=== PATIENT | female | born 1985 | race Caucasian/White ===

== ENCOUNTER 2025-02-21 18:18 | Emergency (ER) | payer OTHER, SELFPAY ==
[2025-02-21 18:22] VITALS: BP 149/103; PULSE 69; RESP 20; TEMP 36.6; O2SAT 100
--- NOTE | 2025-02-21 18:27 | ED_ITS ---
HPI - URI/Sore Throat General Chief Complaint: Upper Respiratory Infection Stated Complaint: hurts to swallow/right side Time Seen by Provider: 02/21/25 18:27 History of Present Illness HPI Narrative: 39-year-old female presented for complaint of a tender swollen lymph node to the right neck. First noticed yesterday. Patient endorses last week similar symptoms on the left side of the neck. Denies significant sore throat, ear pain, dental trauma, nasal congestion or drainage, cough, n/v/d/f/c. Related Data Home Medications ?Medication ?Instructions ?Recorded ?Confirmed ?Last Taken ?Type guselkumab 100 mg/mL subcutaneous mg subcut 02/21/25 Unknown History syringe (Tremfya) semaglutide (weight loss) 2.4 mg subcut 02/21/25 Unkn own History mg/0.75 mL subcutaneous pen injector (Wegovy) Allergies Allergy/AdvReac Type Severity Reaction Status Date / Time No Known Allergies Allergy Verified 02/21/25 18:33 Review of Systems Review of Systems: CONSTITUTIONAL: Denies body aches, fever, chills, or sweats. EYES: Denies visual changes, redness, or discharge. ENT: reports right neck lymph node swelling denies sore throat Denies rhinorrhea, congestion, or otalgia. CARDIOVASCULAR: Denies chest pain, palpitations, or edema. RESPIRATORY: Denies dyspnea. GASTROINTESTINAL: Denies abdominal pain, nausea, vomiting, or diarrhea. SKIN: Denies rash NEUROLOGIC: Denies headache Exam Narrative: GENERAL: well-appearing, no acute distress. EYES: conjunctivae clear ENT: Mucous membranes moist. Normal dentition. TM pearly saldana with normal light reflex bilaterally; no tragal tenderness. Oropharynx not erythematous without lesions. Tonsils not enlarged and without exudate. No drooling, no hoarseness, no trismus, uvula midline. No tripod positioning, hot potato voice, or soft palate swelling. NECK: Supple. Minimal anterior cervical lymphadenopathy CHEST: Clear to auscultation, breath sounds equal. No respiratory distress, speaks in full sentences. HEART: Regular rate and rhythm. SKIN: Warm, dry, no rash. NEURO: Alert and oriented x3. Course Course Emergency Course: Patient is aware of diagnosis, understands and agrees to treatment plan. Anticipatory guidance given. Patient agrees to follow-up as directed and is aware of reasons to seek care at the emergency department. Portions of this record may have been created with voice recognition software Level of Care: Express Care Visit Vital Signs Vital signs: Vital Signs Temperature 97.8 F 02/21/25 18:22 Pulse Rate 69 02/21/25 18:22 Respiratory Rate 20 02/21/25 18:22 Blood Pressure 149/103 H 02/21/25 18:22 Pulse Oximetry 100 02/21/25 18:22 Oxygen Delivery Room Air 02/21/25 18:22 Temperature 97.8 F 02/21/25 18:22 Pulse Rate 69 02/21/25 18:22 Respiratory Rate 20 02/21/25 18:22 Blood Pressure 149/103 H 02/21/25 18:22 Pulse Oximetry 100 02/21/25 18:22 Oxygen Delivery Room Air 02/21/25 18:22 MDM - URI/Sore Throat MDM Narrative Medical decision making narrative: neg strep result reviewed with pt. Advise supportive treatments. Patient is appropriate for outpatient treatment and follow-up. Differential Diagnosis Differential diagnosis: Likely upper respiratory infection, viral infection and pharyngitis Lab Data Labs: Lab Results 02/21/25 Range/Units 18:32 POC Grp A Strep Screen Negative (Negative) Discharge Plan Discharge Clinical Impression: Lymphadenopathy Patient Disposition: Home Condition: Stable Instructions: Lymphadenopathy (ED) Additional Instructions: Rapid strep swab was negative today You will be notified in a few days if the culture comes back positive for strep, and appropriate antibiotics will be called in at that time. if symptoms are due to a viral illness, it is not treated with antibiotics. Viral symptoms can be present for up to 10-14 days. Recommendations: Tylenol every 8 hours as needed for pain/fever Low setting heating pad as needed Soft foods, cool liquids, warm tea. Gargle with warm saltwater twice a day. Chloraseptic spray and throat lozenges. Rest and stay hydrated. --Follow up with your PCP --Go to the ER immediately if you cannot swallow your saliva, trouble b reathing/wheezing, throat swelling, pain is persistent and severe Patient Language: [place] Prescriptions: No Action Tremfya 100 mg/mL syringe SUBCUT Wegovy 2.4 mg/0.75 mL pen injector SUBCUT Follow-up/Referrals: Harms,Kip Arcos M.D. [Primary Care Provider] Time of Disposition: 18:48
[2025-02-21 18:44] LABS: EDSTREPNEGPOS1 Negative (Negative)
--- OUTSIDE RECORDS SUMMARY | 2025-02-21 19:17 | XMS_ITS | Clinical Summary ---
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 This disclosure is being madepursuant to the Care Everywhere program and may not contain all information available regarding this patient. Last updated 18.[facility] Allergies No known active allergies Medications * Be aware that medications may not be up to date on this document. Alwaysverify current medications with the patient. calcipotriene-be tamethasone dip (Taclonex) 0.005-0.064 % ointmentIndicati ons:Plaque psoriasis Apply to affected areas on extremities BID 60 g 3 3 Active betamethasone dipropionate augmented (Diprolene) 0.05 % ointment Apply to affected areas on legs twice daily. 30 days supply. 50 g 3 3 Active guselkumab (Tremfya) 100 MG/ML prefilled syringeIndicatio ns:Other psoriasis Inject 1 ml subcutaneous on day 1, then at 4 weeks 2 mL 4 Active triamcinolone acetonide (Kenalog) 0.1 % creamIndications :Other psoriasis Apply to affected area on extremities and trunk BID. 30 day supply. 454 g 3 4 Active clobetasol (Temovate) 0.05 % creamIndications :Other psoriasis Apply to affected area on trunk and extremities BID. 30 day supply. 60 g 3 4 Active meloxicam (Mobic) 15 MG tablet Take 1 (one) tablet by mouth once daily 30 tablet 4 5 Active Other 1.75 mL by Injection route every 7 days (once a week) Active Active Problems Problem Noted Date Diagnosed Date Plaque psoriasis 04/17/2022 Encounter for long-term curr ent use of high risk medication (Tremfya) 04/17/2022 Encounters Date Type Department Care Team Description 01/05/2025 2:00 PM CDT Office Visit [facility] - Rheumatology [address] [place] [phone] Kim Bailey MD Primary osteoarthritis of both knees (Primary Dx); Other psoriasis; Polyarthralgia 01/05/2025 Travel 12/14/2024 3:35 PM CDT - 12/14/2024 11:59 PM CDT Hospital Encounter [facility] LAB OP DRAW STATION [address] [place] [address] Kim Bailey MD Discharge Disposition: Home or Self Care 12/14/2024 2:56 PM CDT - 12/14/2024 3:34 PM CDT Hospital Encounter [facility] DIAGNOSTIC RAD OP [address] [place] [address] Kim Bailey MD Discharge Disposition: Home or Self Care 12/14/2024 2:00 PM CDT Office Visit [facility] - Rheumatology [address] [place] [phone] Kim Bailey MD Polyarthralgia (Primary Dx); Other psoriasis; Other fatigue; Myalgia 12/14/2024 Travel from Last 3 Months Immunizations Immunization Administration Dates Next Due INFLUENZA VACCINE 03/12/2022 Family History Medical History Relation Name Comments Multiple Sclerosis Sister Relation Name Status Comments Sister Social History Tobacco Use Types Packs/Day Years Used Date Smoking Tobacco: Never Smokeless Tobacco: Never Tobacco Cessation:Counseling Given: Not Answered PHQ-2 Answer Date Recorded Patient Health Questionnaire-2 Score 0 01/05/2025 Comments No Sex and Gender Information Value Date Recorded Sex Assigned at Not on file Legal Sex Female 5:00 PM CDT Gender Identity Not on file Sexual Orientation Not on file Last Filed Vital Signs Vital Sign Reading Time Taken Comments Blood Pressure 147/80 01/05/2025 1:46 PM CDT Pulse 91 01/05/2025 1:46 PM CDT Temperature 36.1 C (96.9 F) 12/14/2024 1:58 PM CDT Respiratory Rate - - Oxygen Saturation 99% 01/05/2025 1:46 PM CDT Inhaled Oxygen Concentration - - Weight 153.3 kg (338 lb) 01/05/2025 1:46 PM CDT Height 167.6 cm (5' 6) 01/05/2025 1:46 PM CDT Body Mass Index 54.55 01/05/2025 1:46 PM CDT Plan of Treatment Upcoming Encounters Date Type Department Care Team (Late st Contact Info) Description 04/13/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 Office Visit [facility] - Dermatology [address] [place] [address], [place] [phone] Starla Vallejo MD [address] [place] [address] [address] [place] [address] Health Maintenance Due Date Last Done Comments HIV SCREENING 2000 HEPATITIS C SCREENING 09/22/2003 DTAP/TDAP/TD VACCINES (1 - Tdap) 2004 HEPATITIS B VACCINE (1 of 3 - 19+ 3-dose series) 2004 PAP SMEAR 2006 HPV VACCINE (1 - 3-dose SCDM series) 2012 COVID-19 VACCINE ( - 2023-2 5 season) 2025 INFLUENZA VACCINE (#1) 2025 03/12/2022 ZOSTER VACCINE (1 of 2) 09/27/2035 DEPRESSION SCREENING Completed 01/05/2025 HIB VACCINE Aged Out No longer eligi ble based on patient's age to complete this topic MENINGOCOCCAL (Group B) VACC INE SHARED DECISION-MAKING Aged Out No longer eligibl e based on patient's age to complete this topic MENINGOCOCCAL GROUPS A/C/Y/W VACCINE Aged Out No longer eligible b ased on patient's age to complete this topic PNEUMOCOCCAL VACCINE Aged Out No long er eligible based on patient's age to complete this topic Procedures Procedure Name Priority Date/Time Associated Diagnosis Comments URINALYSIS REFLEX MICROSCOPIC REFLEX CULTURE Routine 12/14/2024 4:38 PM CDT Other psoriasis Polyarthralgia SS-A (SJOGREN'S) 52+60 ANTIBODIES Routine 12/14/2024 4:14 PM CDT Other psoriasis Polyarthralgia QUANTIFERON-TB GOLD PLUS 4-TUBE Routine 12/14/2024 4:14 PM CDT Other psoriasis Polyarthralgia CYCLIC CITRULLINATED PEPTIDE(CCP) AB IGG Routine 12/14/2024 4:14 PM CDT Other psoriasis Polyarthralgia HLA TYPING B27 Routine 12/14/2024 4:14 PM CDT Other psoriasis Polyarthralgia TSH Routine 12/14/2024 4:14 PM CDT Other psoriasis Polyarthralgia T4 FREE Routine 12/14/2024 4:14 PM CDT Other psoriasis Polyarthralgia SS-B (SJOGREN'S) ANTIBODY Routine 12/14/2024 4:14 PM CDT Other psoriasis Polyarthralgia RHEUMATOID FACTOR BLOOD QUANTITATIVE Routine 12/14/2024 4:14 PM CDT Other psoriasis Polyarthralgia CK BLOOD Routine 12/14/2024 4:14 PM CDT Other psoriasis Polyarthralgia PERNELL BLOOD SCREEN W/REFLEX TITER Routine 12/14/2024 4:14 PM CDT Other psoriasis Polyarthralgia ERYTHROCYTE SEDIMENTATION RATE Routine 12/14/2024 4:14 PM CDT Other psoriasis Polyarthralgia C-REACTIVE PROTEIN Routine 12/14/2024 4: 14 PM CDT Other psoriasis Polyarthralgia COMPREHENSIVE METABOLIC PANEL Routine 12/14/2024 4:14 PM CDT Other psoriasis Polyarthralgia CBC W AUTO DIFFERENTIAL Routine 12/14/2024 4:14 PM CDT Other psoriasis Polyarthralgia XR PELVIS W BILAT HIP 2VW Routine 12/14/2024 3:29 PM CDT Other psoriasis Polyarthralgia Other fatigue Myalgia XR KNEE RIGHT 2VW OR LESS Routine 12/14/2024 3:29 PM CDT Other psoriasis Polyarthralgia Other fatigue Myalgia XR KNEE LEFT 2VW OR LESS Routine 12/14/2024 3:29 PM CDT Other psoriasis Polyarthralgia Other fatigue Myalgia XR SI JOINTS 3VW OR MORE Routine 12/14/2024 3:29 PM CDT Other psoriasis Polyarthralgia Other fatigue Myalgia from Last 3 Months Results * URINALYSIS REFLEX MICROSCOPIC REFLEX CULTURE (12/14/2024 4:38 PM CDT) Color UA Yellow Yellow, Straw 12/14/2024 5:16 PM CDT [facility] Clarity UA Clear Clear 12/14/2024 5:16 PM CDT [facility] Glucose UA Normal Normal 12/14/2024 5:16 PM CDT [facility] Bilirubin UA Negative Negative 12/14/2024 5:16 PM CDT [facility] Ketone UA Negative Negative 12/14/2024 5:16 PM CDT [facility] Specific [place] UA 1.026 1.005 - 1.030 12/14/2024 5:16 PM CDT [facility] Blood UA Negative Negative 12/14/2024 5:16 PM CDT [facility] pH UA 5.0 5.0 - 8.0 12/14/2024 5:16 PM CDT [facility] Protein UA Negative Negative 12/14/2024 5:16 PM CDT [facility] Urobilinogen UA Normal Normal mg/dL 12/14/2024 5:16 PM CDT [facility] Nitrite UA Negative Negative 12/14/2024 5:16 PM CDT [facility] Leukocyte Esterase UA Negative Negative 12/14/2024 5:16 PM CDT [facility] Reflex Status Culture not indicated 12/14/2024 5:16 PM CDT [facility] Urine Microscopy Urine microscopy not indicated 12/14/2024 5:16 PM CDT [facility] Urine URINE SPECIMEN OBTAINED BY CLEAN CATCH PROCEDURE / Unknown Collection / Unknown 12/14/2024 4:38 PM CDT 12/14/2024 5:02 PM CDT Kim Bailey MD LAB - URINALYSIS ORDER MIKE Final Result [facility] [address] [place] [phone], [facility] [phone] * SS-A (SJOGREN'S) 52+60 ANTIBODIES (12/14/2024 4:14 PM CDT) SS-A 52 Antibody 1 0 - 40 AU/mL 12/18/2024 11:36 AM CDT [email or web address] ([facility]) Comment: INTERPRETIVE INFORMATION: SSA-52 (Ro52) (KAR[place]INA) Antibody, IgG 29 AU/mL or Less ............. Negative 30 - 40 AU/mL ................ Equivocal 41 AU/mL or Greater .......... Positive SSA-52 (Ro52) and/or SSA-60 (Ro60) antibodies are associated with a diagnosis of Sjogren syndrome, systemic lupus erythematosus (SLE), and systemic sclerosis. SSA-52 antibody overlaps significantly with the major SSc-related antibodies. SSA-52 (Ro52) antibody occurs frequently in patients with inflammatory myopathies, often in the presence of interstitial lung disease. SS-A 60 Antibody 0 0 - 40 AU/mL 12/18/2024 11:36 AM CDT [email or web address] ([facility]) Comment: REFERENCE INTERVAL: SSA-60 (Ro60) (KAROLINA) Antibody, IgG 29 AU/mL or Less ............. Negative 30 - 40 AU/mL ................ Equivocal 41 AU/mL or Greater .......... Positive Performed By: [facility] [address] [place] [address] Paper Deliverer: Germán Cobb MD, PhD CLIA Number: [id number] Blood BLOOD SPECIMEN / Unknown Lab Venipuncture / Unknown 12/14/2024 4:14 PM CDT 12/14/2024 5:00 PM CDT Kim Bailey MD LAB - CHEMISTRY ORDERA BLES Final Result [facility]) [address] [place] [address] * QUANTIFERON-TB GOLD PLUS 4-TUBE (12/14/2024 4:14 PM CDT) QuantiFERON Mitogen Minus NIL 9.94 IU/mL 12/17/2024 7:56 AM CDT [facility]) QuantiFERON Nil Value 0.06 IU/mL 12/17/2024 7:56 AM CDT [facility]) QuantiFERON Plus TB1 Minus NIL 0.01 <=0.34 IU/mL 12/17/2024 7:56 AM CDT [facility]) QuantiFERON Plus TB2 Minus NIL 0.02 <=0.34 IU/mL 12/17/2024 7:56 AM CDT [facility]) QuantiFERON-TB Gold Plus Negative Negative 12/17/2024 7:56 AM CDT [facility]) Comment: INTERPRETIVE INFORMATION:Quantiferon TB Gold Plus Interferon gamma release is measured for specimens from each of the four collection tubes. A qualitative result (Negative, Positive, or Indeterminate) is based on interpretation of the four values: NIL, MITOGEN minus NIL (MITOGEN-NIL), TB1 minus NIL (TB1-NIL), and TB2 minus NIL (TB2-NIL). The NIL value represents nonspecific reactivity produced by the patient specimen. The MITOGEN-NIL value serves as the positive control for the patient specimen, demonstrating successful lymphocyte activity. The TB1-NIL tube specifically detects CD4+ lymphocyte reactivity, specifically stimulated by the TB1 antigens. The TB2-NIL tube detects both CD4+ and CD8+ lymphocyte reactivity, stimulated by TB2 antigens. An overall Negative result does not completely rule out TB infection. A false-positive result in the absence of other clinical evidence of TB infection is not uncommon. Refer to: Updated Guidelines for Using Interferon Gamma Release Assays to Detect Mycobacterium tuberculosis Infection -- [place], 2010 (http://www.cdc.gov/mmwr/preview/mmwrhtml/xq6095e4.htm), for more information concerning test performance in low-prevalence populations and use in occupational screening. Performed By: [facility] [address] [place] [address] Paper Deliverer: Germán Cobb MD, PhD CLIA Number: [id number] Blood BLOOD SPECIMEN / Unknown Lab Venipuncture / Unknown 12/14/2024 4:14 PM CDT 12/14/2024 4:44 PM CDT Kim Bailey MD LAB - CHEMISTRY ORDERA BLES Final Result Performing Organization Address City/[facility] Co de Phone Number [facility] ([facility]) [address] [place] [address], [facility] * RHEUMATOID FACTOR BLOOD QUANTITATIVE (12/14/2024 4:14 PM CDT) Pathologist [facility] Rheumatoid Factor <15 <30 IU/mL 12/14/2024 6:08 PM CDT [facility] Rheumatoid Factor Screen Negative Negative 12/14/2024 6:08 PM CDT [facility] Blood BLOOD SPECIMEN / Unknown Lab Venipuncture / Unknown 12/14/2024 4:14 PM CDT 12/14/2024 5:28 PM CDT us Kim Bailey MD LAB - CHEMISTRY ORDERA BLES Final Result Performing Organization Address City/State/[facility] Co de Phone Number [facility] [address] [place] [address], [facility] [phone] * (ABNORMAL) C-REACTIVE PROTEIN (12/14/2024 4:14 PM CDT) Pathologist [facility] C-Reactive Protein 1.8(H) <=0.5 mg/dL 12/14/2024 5:12 PM CDT [facility] Blood BLOOD SPECIMEN / Unknown Lab Venipuncture / Unknown 12/14/2024 4:14 PM CDT 12/14/2024 4:37 PM CDT Kim Bailey MD LAB - CHEMISTRY ORDERA BLES Final Result Performing Organization Address [facility] Co de Phone Number [address] [address], [facility] [phone] * PERNELL BLOOD SCREEN W/REFLEX TITER (12/14/2024 4:14 PM CDT) Pathologist [facility] PERNELL IgG None Detected None Detected 12/17/2024 10:17 AM CDT [email or web address] ([facility]) Comment: No Anti-Nuclear Antibodies (PERNELL) detected by RIZWAN. No further testing will be performed. If suspicion of connective tissue disease is strong and PERNELL RIZWAN is negative, consider testing for PERNELL by IFA ([id number]). INTERPRETIVE INFORMATION: Anti-Nuclear Antibodies (PERNELL), IgG by RIZWAN Antinuclear Antibodies (PERNELL), IgG by RIZWAN: PERNELL specimens are screened using enzyme-linked immunosorbent assay (RIZWAN) methodology. All RIZWAN results reported as Detected are further tested by indirect fluorescent assay (IFA) using HEp-2 substrate with an IgG-specific conjugate. The PERNELL RIZWAN screen is designed to detect antibodies against dsDNA, histones, SS-A (Ro), SS-B (La), Stapleton, Stapleton/SENIOR STERE[employer] COMPILER TEAM LEAD, Scl-70, Zahra-1, centromeric proteins, other antigens extracted from the HEp-2 cell nucleus. PERNELL RIZWAN assays have been reported to have lower sensitivities than PERNELL IFA for systemic autoimmune rheumatic diseases (SARD). Negative results do not necessarily rule out SARD. Performed By: [facility] [address] [place] [id number] Paper Deliverer: Germán Cobb MD, PhD CLIA Number: [id number] Blood BLOOD SPECIMEN / Unknown Lab Venipuncture / Unknown 12/14/2024 4:14 PM CDT 12/14/2024 5:00 PM CDT Kim Bailey MD LAB - CHEMISTRY ORDERA BLES Final Result Performing Organization Address [facility] Co de Phone Number [facility]) [address] [place] [address] * HLA TYPING B27 (12/14/2024 4:14 PM CDT) HLA-B27 Negative Negative 12/17/2024 4:22 PM CDT [facility] ([facility]) Comment: INTERPRETIVE INFORMATION: HLA-B27 HLA-B27 is a serologically defined allele of the human HLA-B locus. The presence of the HLA-B27 antigen is strongly associated with ankylosing spondylitis and related disorders. This test was developed and its performance characteristics determined by [facility]. It has not been cleared or approved by the US Food and Drug Administration. This test was performed in a CLIA certified laboratory and is intended for clinical purposes. Performed By: [place] [address] Paper Deliverer: Germán Cobb MD, PhD CLIA Number: [id number] Blood BLOOD SPECIMEN / Unknown Lab Venipuncture / Unknown 12/14/2024 4:14 PM CDT 12/14/2024 4:37 PM CDT Kim Bailey MD LAB - CHEMISTRY ORDERA BLES Final Result Performing Organization Address [facility] Co de Phone Number [facility]) [address] [place] [address] * SS-B (SJOGREN'S) ANTIBODY (12/14/2024 4:14 PM CDT) SS-B Antibody 0 0 - 40 AU/mL 12/18/2024 11:36 AM CDT [facility] ([facility]) Comment: INTERPRETIVE INFORMATION: SSB (La) ([place]) Ab, IgG 29 AU/mL or Less ............. Negative 30 - 40 AU/mL ................ Equivocal 41 AU/mL or Greater .......... Positive SSB (La) antibody is seen in 50-60% of Sjogren syndrome cases and is specific if it is the only KAROLINA antibody present. 15-25% of patients with systemic lupus erythematosus (SLE) and 5-10% of patients with progressive systemic sclerosis (PSS) also have this antibody. Performed By: [facility] [address] [place] [address] Paper Deliverer: Germán Cobb MD, PhD CLIA Number: [id number] Blood BLOOD SPECIMEN / Unknown Lab Venipuncture / Unknown 12/14/2024 4:14 PM CDT 12/14/2024 5:00 PM CDT Kim Bailey MD LAB - CHEMISTRY ORDERA BLES Final Result Performing Organization Address City/[facility]/ZIP Co de Phone Number [facility] ([facility]) [address] [place] [address] * CYCLIC CITRULLINATED PEPTIDE(CCP) AB IGG (12/14/2024 4:14 PM CDT) [facility] CCP Antibody IgG 1.8 <5.0 U/mL 12/14/2024 6:08 PM CDT [facility] Blood BLOOD SPECIMEN / Unknown Lab Venipuncture / Unknown 12/14/2024 4:14 PM CDT 12/14/2024 5:28 PM CDT Kim Bailey MD LAB - CHEMISTRY ORDERA BLES Final Result [address] [address], [place] [phone] * (ABNORMAL) ERYTHROCYTE SEDIMENTATION RATE (12/14/2024 4:14 PM CDT) [facility] Erythrocyte Sedimentation Rate Westergren 64(H) 0 - 20 MM/HR 12/14/2024 4:59 PM T [facility] Blood BLOOD SPECIMEN / Unknown Lab Venipuncture / Unknown 12/14/2024 4:14 PM CDT 12/14/2024 4:37 PM CDT us Kim Bailey MD LAB - HEMATOLOGY ORDER MIKE Final Result [facility] [address] [place] [address], [facility] [phone] * (ABNORMAL) CBC W/ DIFFERENTIAL (12/14/2024 4:14 PM CDT) WBC 9.9 4.0 - 10.7 x10E9/L 12/14/2024 4:50 PM [facility] RBC Count 4.86 3.90 - 5.20 x10E12/L 12/14/2024 4:50 PM [facility] Hemoglobin 13.3 11.9 - 15.8 g/dL 12/14/2024 4:50 PM [facility] Hematocrit 42.0 34.8 - 46.1 % 12/14/2024 4:50 PM [facility] MCV 86.4 80.0 - 98.0 fL 12/14/2024 4:50 PM [facility] MCH 27.4 26.7 - 33.6 pg 12/14/2024 4:50 PM [facility] MCHC 31.7 31.7 - 36.3 g/dL 12/14/2024 4:50 PM [facility] RDW-CV 13.9 11.3 - 14.8 % 12/14/2024 4:50 PM [facility] Platelet Count 270 150 - 420 x10E9/L 12/14/2024 4:50 PM [facility] MPV 11.3 7.8 - 11.4 fL 12/14/2024 4:50 PM [facility] Neutrophil % 57.1 41.0 - 74.0 % 12/14/2024 4:50 PM [facility] Lymphocyte % 30.8 17.0 - 47.0 % 12/14/2024 4:50 PM [facility] Monocyte % 5.1 3.0 - 11.0 % 12/14/2024 4:50 PM [facility] Eosinophil % 6.2 0.0 - 7.0 % 12/14/2024 4:50 PM [facility] Basophil % 0.5 0.0 - 1.6 % 12/14/2024 4:50 PM [facility] Immature Granulocytes % 0.3 0.0 - 1.0 % 12/14/2024 4:50 PM [facility] Neutrophil Absolute 5.64 1.60 - 7.50 x10E9/L 12/14/2024 4:50 PM [facility] Lymphocyte Absolute 3.04 1.00 - 4.40 x10E9/L 12/14/2024 4:50 PM [facility] Monocyte Absolute 0.50 0.15 - 1.00 x10E9/L 12/14/2024 4:50 PM [facility] Eosinophil Absolute 0.61(H) 0.00 - 0.60 x10E9/L 12/14/2024 4:50 PM [facility] Basophil Absolute 0.05 0.00 - 0.13 x10E9/L 12/14/2024 4:50 PM [facility] Blood BLOOD SPECIMEN / Unknown Lab Venipuncture / Unknown 12/14/2024 4:14 PM CDT 12/14/2024 4:37 PM CDT us Kim Bailey MD LAB - HEMATOLOGY ORDER MIKE Final Result [address] [address], [facility] [phone] * COMPREHENSIVE METABOLIC PANEL (12/14/2024 4:14 PM CDT) BUN 16 7 - 26 mg/dL 12/14/2024 9:06 PM [facility] Creatinine 0.78 0.56 - 0.96 mg/dL 12/14/2024 9:06 PM [facility] Sodium 137 136 - 145 mmol/L 12/14/2024 9:06 PM [facility] Potassium 4.0 3.5 - 4.5 mmol/L 12/14/2024 9:06 PM [facility] Chloride 107 98 - 107 mmol/L 12/14/2024 9:06 PM [facility] CO2 23 22 - 29 mmol/L 12/14/2024 9:06 PM [facility] Glucose 79 70 - 99 mg/dL 12/14/2024 9:06 PM [facility] Calcium 9.4 8.4 - 10.2 mg/dL 12/14/2024 9:06 PM [facility] Protein Total 7.5 6.0 - 8.3 g/dL 12/14/2024 9:06 PM [facility] Albumin 4.3 3.4 - 5.0 g/dL 12/14/2024 9:06 PM [facility] Bilirubin Total 0.4 0.2 - 1.2 mg/dL 12/14/2024 9:06 PM [facility] Alkaline Phosphatase 67 40 - 150 U/L 12/14/2024 9:06 PM [facility] ALT 12 5 - 55 U/L 12/14/2024 9:06 PM [facility] AST 15 5 - 34 U/L 12/14/2024 9:06 PM [facility] Anion Gap 7 6 - 16 12/14/2024 9:06 PM [facility] BUN/Creatinine Ratio 21 7 - 23 12/14/2024 9:06 PM [facility] Osmolality Calculated 284 275 - 295 mOsm/kg 12/14/2024 9:06 PM [facility] Albumin/Globulin Ratio 1.3 1.1 - 2.3 12/14/2024 9:06 PM [facility] eGFR by CKD-EPI >90 >=90 mL/min/1.7 3 m2 12/14/2024 9:06 PM [facility] Comment:Estimated Glomerular Filtration Rate (eGFR) calculated using the CKD-EPI Creatinine Equation (2020), per the National Kidney Foundation and [place] [employer]ph[employer] recommendations. Blood BLOOD SPECIMEN / Unknown Lab Venipuncture / Unknown 12/14/2024 4:14 PM CDT 12/14/2024 4:37 PM CDT us Kim Bailey MD LAB - CHEMISTRY ORDERA BLES Final Result [address] [address], [place] [phone] * CK BLOOD (12/14/2024 4:14 PM CDT) CK Total 92 30 - 200 U/L 12/14/2024 5:12 PM CDT [facility] Blood BLOOD SPECIMEN / Unknown Lab Venipuncture / Unknown 12/14/2024 4:14 PM CDT 12/14/2024 4:37 PM CDT us Kim Bailey MD LAB - CHEMISTRY ORDERA BLES Final Result Performing Organization Address [facility]/ZIP Co de Phone Number [address] [address], [place] [phone] * TSH (12/14/2024 4:14 PM CDT) TSH 2.160 0.350 - 4.940 uIU/mL 12/14/2024 5:33 PM CDT [facility] Blood BLOOD SPECIMEN / Unknown Lab Venipuncture / Unknown 12/14/2024 4:14 PM CDT 12/14/2024 4:37 PM CDT us Kim Bailey MD LAB - CHEMISTRY ORDERA BLES Final Result Performing Organization Address City/[facility]/ZIP Co de Phone Number [address] [address], [place] [phone] * T4 FREE (12/14/2024 4:14 PM CDT) T4 Free 1.0 0.7 - 1.5 ng/dL 12/14/2024 5:33 PM CDT [facility] Blood BLOOD SPECIMEN / Unknown Lab Venipuncture / Unknown 12/14/2024 4:14 PM CDT 12/14/2024 4:37 PM CDT Kim Bailey MD LAB - CHEMISTRY ORDERA BLES Final Result [facility] [address] [place] [address], [facility] [phone] * XR Knee Right 2Vw or Less (12/14/2024 3:29 PM CDT) Anatomical Region Laterality Modality Lower Extremity Digital Radiogra phy 12/14/2024 3:35 PM CDT Impressions 12/14/2024 3:41 PM CDT IMPRESSION: 1.Right and left hips: Normal. 2.Sacroiliac joints: Normal. 3.Right and left knees: Small osteophytes indicating early degenerative change without joint space narrowing. Small effusion on the left. > Interpreting Provider: Rigoberto Piña MD on 12/14/2024 3:41 PM Narrative 12/14/2024 3:41 PM CDT PROCEDURE: XR KNEE RIGHT 2VW OR LESS, XR PELVIS W BILAT HIP 2VW, XR KNEE LEFT 2VW OR LESS, XR SI JOINTS 3VW OR MORE DATE/TIME OF EXAM: 12/14/2024 3:30 PM CLINICAL INFORMATION: None relevant/not provided if blank. Indication: L40.8: Other psoriasis M25.50: Polyarthralgia R53.83: Other fatigue M79.10: Myalgia Additional History: COMPARISON: None. FINDINGS: Pelvis and bilateral hips: There is no fracture or dislocation of either hip. The joint spaces are normal. There are no erosions. The pelvic radiograph is normal. An intrauterine contraceptive device is visible. Sacroiliac joints: There is no erosion, widening, sclerosis, narrowing, or ankylosis of either sacroiliac joint. There is no fracture. The hip joint spaces are normal. Right knee: No acute fracture or dislocation is present. The joint spaces are normal. There are small osteophytes. No erosions are seen. There is no effusion. Left knee: No acute fracture or dislocation is present. The joint spaces are normal. There are small osteophytes. No erosions are seen. There is a small effusion. Procedure Note Rigoberto Piña MD - 12/14/2024 PROCEDURE: XR KNEE RIGHT 2VW OR LESS, XR PELVIS W BILAT HIP 2VW, XRKNEE LEFT 2VW OR LESS, XR SI JOINTS 3VW OR MORE DATE/TIME OF EXAM: 12/14/2024 3:30 PM CLINICAL INFORMATION: None relevant/not provided if blank. Indication: L40.8: Other psoriasis M25.50: Polyarthralgia R53.83: Other fatigue M79.10: Myalgia Additional History: COMPARISON: None. FINDINGS: Pelvis and bilateral hips: There is no fracture or dislocation of either hip. The joint spaces are normal. There are no erosions. The pelvic radiograph is normal. An intrauterine contraceptive device is visible. Sacroiliac joints: There is no erosion, widening, sclerosis, narrowing, or ankylosis ofeither sacroiliac joint. There is no fracture. The hip joint spaces are normal. Right knee: No acute fracture or dislocation is present. The joint spaces arenormal. There are small osteophytes. No erosions are seen. There is no effusion. Left knee: No acute fracture or dislocation is present. The joint spaces arenormal. There are small osteophytes. No erosions are seen. There is a small effusion. IMPRESSION: 1.Right and left hips: Normal. 2.Sacroiliac joints: Normal. 3.Right and left knees: Small osteophytes indicating early degenerative change without joint space narrowing. Small effusion on the left. > Interpreting Provider: Rigoberto Piña MD on 12/14/2024 3:41 PM Kim Bailey MD DIAGNOSTIC IMAGING ORD ERABLES Final Result * XR Knee Left 2Vw or Less (12/14/2024 3:29 PM CDT) Anatomical Region Laterality Modality Lower Extremity Digital Radiogra phy 12/14/2024 3:35 PM CDT Impressions 12/14/2024 3:41 PM CDT IMPRESSION: 1.Right and left hips: Normal. 2.Sacroiliac joints: Normal. 3.Right and left knees: Small osteophytes indicating early degenerative change without joint space narrowing. Small effusion on the left. > Interpreting Provider: Rigoberto Piña MD on 12/14/2024 3:41 PM Narrative 12/14/2024 3:41 PM CDT PROCEDURE: XR KNEE RIGHT 2VW OR LESS, XR PELVIS W BILAT HIP 2VW, XR KNEE LEFT 2VW OR LESS, XR SI JOINTS 3VW OR MORE DATE/TIME OF EXAM: 12/14/2024 3:30 PM CLINICAL INFORMATION: None relevant/not provided if blank. Indication: L40.8: Other psoriasis M25.50: Polyarthralgia R53.83: Other fatigue M79.10: Myalgia Additional History: COMPARISON: None. FINDINGS: Pelvis and bilateral hips: There is no fracture or dislocation of either hip. The joint spaces are normal. There are no erosions. The pelvic radiograph is normal. An intrauterine contraceptive device is visible. Sacroiliac joints: There is no erosion, widening, sclerosis, narrowing, or ankylosis of either sacroiliac joint. There is no fracture. The hip joint spaces are normal. Right knee: No acute fracture or dislocation is present. The joint spaces are normal. There are small osteophytes. No erosions are seen. There is no effusion. Left knee: No acute fracture or dislocation is present. The joint spaces are normal. There are small osteophytes. No erosions are seen. There is a small effusion. Procedure Note Rigoberto Piña MD - 12/14/2024 PROCEDURE: XR KNEE RIGHT 2VW OR LESS, XR PELVIS W BILAT HIP 2VW, XRKNEE LEFT 2VW OR LESS, XR SI JOINTS 3VW OR MORE DATE/TIME OF EXAM: 12/14/2024 3:30 PM CLINICAL INFORMATION: None relevant/not provided if blank. Indication: L40.8: Other psoriasis M25.50: Polyarthralgia R53.83: Other fatigue M79.10: Myalgia Additional History: COMPARISON: None. FINDINGS: Pelvis and bilateral hips: There is no fracture or dislocation of either hip. The joint spaces are normal. There are no erosions. The pelvic radiograph is normal. An intrauterine contraceptive device is visible. Sacroiliac joints: There is no erosion, widening, sclerosis, narrowing, or ankylosis ofeither sacroiliac joint. There is no fracture. The hip joint spaces are normal. Right knee: No acute fracture or dislocation is present. The joint spaces arenormal. There are small osteophytes. No erosions are seen. There is no effusion. Left knee: No acute fracture or dislocation is present. The joint spaces arenormal. There are small osteophytes. No erosions are seen. There is a small effusion. IMPRESSION: 1.Right and left hips: Normal. 2.Sacroiliac joints: Normal. 3.Right and left knees: Small osteophytes indicating early degenerative change without joint space narrowing. Small effusion on the left. > Interpreting Provider: Rigoberto Piña MD on 12/14/2024 3:41 PM Kim Bailey MD DIAGNOSTIC IMAGING ORD ERABLES Final Result * XR Pelvis W Bilat Hip 2Vw (12/14/2024 3:29 PM CDT) Anatomical Region Laterality Modality Pelvis, Lower Extremity Digital Radiography 12/14/2024 3:35 PM CDT Impressions 12/14/2024 3:41 PM CDT IMPRESSION: 1.Right and left hips: Normal. 2.Sacroiliac joints: Normal. 3.Right and left knees: Small osteophytes indicating early degenerative change without joint space narrowing. Small effusion on the left. > Interpreting Provider: Rigoberto Piña MD on 12/14/2024 3:41 PM Narrative 12/14/2024 3:41 PM CDT PROCEDURE: XR KNEE RIGHT 2VW OR LESS, XR PELVIS W BILAT HIP 2VW, XR KNEE LEFT 2VW OR LESS, XR SI JOINTS 3VW OR MORE DATE/TIME OF EXAM: 12/14/2024 3:30 PM CLINICAL INFORMATION: None relevant/not provided if blank. Indication: L40.8: Other psoriasis M25.50: Polyarthralgia R53.83: Other fatigue M79.10: Myalgia Additional History: COMPARISON: None. FINDINGS: Pelvis and bilateral hips: There is no fracture or dislocation of either hip. The joint spaces are normal. There are no erosions. The pelvic radiograph is normal. An intrauterine contraceptive device is visible. Sacroiliac joints: There is no erosion, widening, sclerosis, narrowing, or ankylosis of either sacroiliac joint. There is no fracture. The hip joint spaces are normal. Right knee: No acute fracture or dislocation is present. The joint spaces are normal. There are small osteophytes. No erosions are seen. There is no effusion. Left knee: No acute fracture or dislocation is present. The joint spaces are normal. There are small osteophytes. No erosions are seen. There is a small effusion. Procedure Note Rigoberto Piña MD - 12/14/2024 PROCEDURE: XR KNEE RIGHT 2VW OR LESS, XR PELVIS W BILAT HIP 2VW, XRKNEE LEFT 2VW OR LESS, XR SI JOINTS 3VW OR MORE DATE/TIME OF EXAM: 12/14/2024 3:30 PM CLINICAL INFORMATION: None relevant/not provided if blank. Indication: L40.8: Other psoriasis M25.50: Polyarthralgia R53.83: Other fatigue M79.10: Myalgia Additional History: COMPARISON: None. FINDINGS: Pelvis and bilateral hips: There is no fracture or dislocation of either hip. The joint spaces are normal. There are no erosions. The pelvic radiograph is normal. An intrauterine contraceptive device is visible. Sacroiliac joints: There is no erosion, widening, sclerosis, narrowing, or ankylosis ofeither sacroiliac joint. There is no fracture. The hip joint spaces are normal. Right knee: No acute fracture or dislocation is present. The joint spaces arenormal. There are small osteophytes. No erosions are seen. There is no effusion. Left knee: No acute fracture or dislocation is present. The joint spaces arenormal. There are small osteophytes. No erosions are seen. There is a small effusion. IMPRESSION: 1.Right and left hips: Normal. 2.Sacroiliac joints: Normal. 3.Right and left knees: Small osteophytes indicating early degenerative change without joint space narrowing. Small effusion on the left. > Interpreting Provider: Rigoberto Piña MD on 12/14/2024 3:41 PM Kim Bailey MD DIAGNOSTIC IMAGING ORD ERABLES Final Result * XR SI Joints 3Vw or More (12/14/2024 3:29 PM CDT) Anatomical Region Laterality Modality Pelvis, Lower Extremity Digital Radiography 12/14/2024 3:35 PM CDT Impressions 12/14/2024 3:41 PM CDT IMPRESSION: 1.Right and left hips: Normal. 2.Sacroiliac joints: Normal. 3.Right and left knees: Small osteophytes indicating early degenerative change without joint space narrowing. Small effusion on the left. > Interpreting Provider: Rigoberto Piña MD on 12/14/2024 3:41 PM Narrative 12/14/2024 3:41 PM CDT PROCEDURE: XR KNEE RIGHT 2VW OR LESS, XR PELVIS W BILAT HIP 2VW, XR KNEE LEFT 2VW OR LESS, XR SI JOINTS 3VW OR MORE DATE/TIME OF EXAM: 12/14/2024 3:30 PM CLINICAL INFORMATION: None relevant/not provided if blank. Indication: L40.8: Other psoriasis M25.50: Polyarthralgia R53.83: Other fatigue M79.10: Myalgia Additional History: COMPARISON: None. FINDINGS: Pelvis and bilateral hips: There is no fracture or dislocation of either hip. The joint spaces are normal. There are no erosions. The pelvic radiograph is normal. An intrauterine contraceptive device is visible. Sacroiliac joints: There is no erosion, widening, sclerosis, narrowing, or ankylosis of either sacroiliac joint. There is no fracture. The hip joint spaces are normal. Right knee: No acute fracture or dislocation is present. The joint spaces are normal. There are small osteophytes. No erosions are seen. There is no effusion. Left knee: No acute fracture or dislocation is present. The joint spaces are normal. There are small osteophytes. No erosions are seen. There is a small effusion. Procedure Note Rigoberto Piña MD - 12/14/2024 PROCEDURE: XR KNEE RIGHT 2VW OR LESS, XR PELVIS W BILAT HIP 2VW, XRKNEE LEFT 2VW OR LESS, XR SI JOINTS 3VW OR MORE DATE/TIME OF EXAM: 12/14/2024 3:30 PM CLINICAL INFORMATION: None relevant/not provided if blank. Indication: L40.8: Other psoriasis M25.50: Polyarthralgia R53.83: Other fatigue M79.10: Myalgia Additional History: COMPARISON: None. FINDINGS: Pelvis and bilateral hips: There is no fracture or dislocation of either hip. The joint spaces are normal. There are no erosions. The pelvic radiograph is normal. An intrauterine contraceptive device is visible. Sacroiliac joints: There is no erosion, widening, sclerosis, narrowing, or ankylosis ofeither sacroiliac joint. There is no fracture. The hip joint spaces are normal. Right knee: No acute fracture or dislocation is present. The joint spaces arenormal. There are small osteophytes. No erosions are seen. There is no effusion. Left knee: No acute fracture or dislocation is present. The joint spaces arenormal. There are small osteophytes. No erosions are seen. There is a small effusion. IMPRESSION: 1.Right and left hips: Normal. 2.Sacroiliac joints: Normal. 3.Right and left knees: Small osteophytes indicating early degenerative change without joint space narrowing. Small effusion on the left. > Interpreting Provider: Rigoberto Piña MD on 12/14/2024 3:41 PM Kim Bailey MD DIAGNOSTIC IMAGING ORD ERABLES Final Result from Last 3 Months Insurance [facility] Address: [facility] [id number] [place] [address] Care Teams Air Conditioning Mechanic Industrial Relationship Specialty Start Date End Date Kip Voss MD [address] [place] [address] PCP - General Internal Medicine 11/06/22
--- OUTSIDE RECORDS SUMMARY | 2025-02-21 19:17 | XMS_ITS | Encounter Summary ---
Author Organization [facility] Address [address] [place] [address] Care Team Providers Care Infectious Disease Technician Name Role Phone Kip Voss MD Primary Care Provider [phone] Encounter Details Date Type Department Care Team (Late st Contact Info) Description 07/18/2022 Telephone [facility] [address] [place] [phone] Kip Burch MD [facility] [phone] Social History Tobacco Use Types Packs/Day Years Used Date Smoking Tobacco: Never Smokeless Tobacco: Never Comments Unknown Sex and Gender Information Value Date Recorded Sex Assigned at Not on file Legal Sex Female 5:00 PM CDT Gender Identity Not on file Sexual Orientation Not on file documented as of this encounter Miscellaneous Notes * Telephone Encounter - Dann Shultz - 07/18/2022 1:15 PM CST Current Provider name:Marcin Reason for call: Patient is not able to make her appt today due to her testing positive for covid. Patient would like to know if she can be rescheduled to the next soonest available with another provider. Patient Call Back number: [phone] RCYCLE SERVICE TECHNICIAN documented in this encounter Plan of Treatment Upcoming Encounters Date Type Department Care Team (Late st Contact Info) Description 04/13/2025 11:10 AM MOTORCYCLE SERVICE TECHNICIAN Office Visit [facility] Dermatology [address] [place] [address], [place] [address] Starla Vallejo MD [address] [place] [address] [address] [place] [address] documented as of this encounter Visit Diagnoses Not on filedocumented in this encounter Care Teams Infectious Disease Technician Relationship Specialty Start Date End Date Kip Voss MD [address] [place] [address] PCP - General Internal Medicine 11/06/22 documented as of this encounter
--- OUTSIDE RECORDS SUMMARY | 2025-02-21 19:17 | XMS_ITS | Encounter Summary ---
Author Organization [facility] Address [address] [place] [address] Phone Care Team Providers Care Plaster Mold Maker Name Role Phone Kip Voss MD Primary Care Provider [phone] Encounter Details Date Type Department Care Team (Late st Contact Info) Description 12/22/2024 Results Follow-Up [facility] Medicine Obstetrics and Gynecology [address] [facility] 1st Floor [address] [place] [address] Traci Little Rai, NP [address] [facility] [address] [place], [place] [id number] Pap and High Risk HPV and Genotyping (Cytology Component) Social History Tobacco Use Types Packs/Day Years Used Date Smoking Tobacco: Never Smokeless Tobacco: Never Alcohol Use Standard Drinks/Week Comments No 0 (1 standard drink = 0.6 oz pur e alcohol) [facility] Utilities Answer Date Recorded In the past 12 months has [employer], gas, oil, or water company threatened to shut off services in your home? No 07/27/2024 Humiliation, Afraid, Rape, and Kick questionnair e Answer Date Recorded Within the last year, have y ou been afraid of your partner or ex-partner? No 07/27/2024 Within the last year, have y ou been humiliated or emotionally abused in other ways by your partner or ex-partner? No Within the last year, have y ou been kicked, hit, slapped, or otherwise physically hurt by your partner or ex-partner? No 07/27/2024 Within the last year, have y ou been raped or forced to have any kind of sexual activity by your partner or ex-partner? No 07/27/2024 Social Connection and Isolation Panel Answer Date Recorded In a typical week, how many times do you talk on the phone with family, friends, or neighbors? More than three times a week 07/27/2024 How often do you get togethe r with friends or relatives? Once a week 07/27/2024 How often do you attend chur or muslim services? Never 07/27/2024 Do you belong to any clubs o r organizations such as confucianism groups, unions, fraternal or athletic groups, or school groups? No 07/27/2024 How often do you attend meet ings of the clubs or organizations you belong to? Never 07/27/2024 Are you , , di vorced, , never , or living with a partner? 07/27/2024 AUDIT-C Answer Date Recorded Q1: How often do you have a drink containing alcohol? Never 12/16/2024 Q2: How many drinks containi ng alcohol do you have on a typical day when you are drinking? Patient does not drink Q3: How often do you have si x or more drinks on one occasion? Never 12/16/2024 Overall Financial Resource Strain (CARDIA) Answe r Date Recorded How hard is it for you to pa y for the very basics like food, housing, medical care, and heating? Not hard at all 07/27/2024 PHQ-2 Answer Date Recorded PHQ-2 Total Score (If total score is 3 or more points, staff should administer the PHQ-9) 0 07/27/2024 [facility] of Occupat ional Health - Occupational Stress Questionnaire Answer Date Recorded Do you feel stress - tense, restless, nervous, or anxious, or unable to sleep at night because your mind is troubled all the time - these days? Only a little 07/27/2024 Exercise Vital Sign Answer Date Recorde d On average, how many days pe r week do you engage in moderate to strenuous exercise (like a brisk walk)? 0 days 07/27/2024 On average, how many minutes do you engage in exercise at this level? 0 min 07/27/2024 Hunger Vital Sign Answer Date Recorded Within the past 12 months, y ou worried that your food would run out before you got the money to buy more. Never true 07/27/19 25 Within the past 12 months, t he food you bought just didn't last and you didn't have money to get more. Never true 07/27/2024 PRAPARE - Transportation Answer Date Re corded In the past 12 months, has l ack of transportation kept you from medical appointments or from getting medications? No 07/10 In the past 12 months, has l ack of transportation kept you from meetings, work, or from getting things needed for daily living? No 07/27/2024 [place] Depression Scale Answer Date Recorded [place] Depression Scale Total 3 09/05/2020 The thought of harming myself has occurred to me . Never 09/05/2020 PHQ-9 Answer Date Recorded PHQ-9 Total Score 0 07/27/2024 Housing Stability Vital Sign Answer Jens e Recorded In the last 12 months, was t here a time when you were not able to pay the mortgage or rent on time? No 07/27/2024 In the past 12 months, how m any times have you moved where you were living? 0 07/27/2024 At any time in the past 12 m [facility], were you homeless or living in a jail (including now)? 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
--- OUTSIDE RECORDS SUMMARY | 2025-02-21 19:17 | XMS_ITS | Encounter Summary ---
Author Organization [facility] Address [facility] [place] [address] Care Team Providers Care Plasterer Tender Name Role Phone Kip Voss MD Primary Care Provider [phone] Reason for Visit * Reason Onset Date Comments Medication Prior Auth Request 04/13/2024 Encounter Details Date Type Department Care Team (Late st Contact Info) Description 04/13/2024 Telephone [facility] [address] [place] [address], [facility] [place] [address] Starla Vallejo MD [address] [place] [address] [address] [place] [address] Medication Prior Auth Request Social History Tobacco Use Types Packs/Day Years Used Date Smoking Tobacco: Never Smokeless Tobacco: Never Comments Unknown Sex and Gender Information Value Date Recorded Sex Assigned at Not on file Legal Sex Female 5:00 PM CDT Gender Identity Not on file Sexual Orientation Not on file documented as of this encounter Progress Notes * Enriqueta Gutierres - 04/14/2024 5:31 PM CST Called and lft vm for patient regarding approval of reload of Tremfya 100mg/ml syringes and script sent to [facility]. I gave the pharmacy's phone number and my direct line as well. I also faxed the pharmacy the approval notice and emphasized it was approved for loading dose as well (2 syringes per 28 days). Enriqueta Gutierres- Pharmacy Escrow Secretary (Dermatology) ICIAN INVESTIGATOR * Enriqueta Gutierres - 04/14/2024 5:24 PM CST Medication Prior Authorization: Medication: Tremfya 100mg/ml syringe Status: Approved 04/14/24 through 04/14/25 Submitted via: [email or web address] Insurance: [facility] (p: [phone]) (f: [phone]) Case/Reference number: ID: [id number] RX Card Billing Info: BIN: [id number] PCN: [id number] GROUP: [id number] ID: [id number] PA approval notice uploaded to media tab. Routed approval details to [facility]. Enriqueta Gutierres- Pharmacy Escrow Secretary (Dermatology) ICIAN INVESTIGATOR documented in this encounter Miscellaneous Notes * Telephone Encounter - Enriqueta Gutierres - 04/14/2024 5:06 PM CST PA submitted forcontinuation of therapy Tremfya 100mg/ml syringe [facility] Razo: [id number] Case ID: not yet assigned Provider:[id number] Enriqueta Gutierres (Chaudhry) Government Operations Consultant - Pharmacy Escrow Secretary ICIAN INVESTIGATOR * Telephone Encounter - Enriqueta Gutierres - 04/14/2024 5:00 PM CST PA submitted forcontinuation of therapy Tremfya 100mg/ml syringe [facility]. Razo: [id number] Provider:[id number] Enriqueta Gutierres (Chaudhry) [facility] - Pharmacy Escrow Secretary ICIAN INVESTIGATOR * Telephone Encounter - Rayne Salazar - 04/13/2024 10:38 AM CST Pt calling because [facility] needs prior auth for tremagnieszkaya ICIAN INVESTIGATOR documented in this encounter Plan of Treatment Upcoming Encounters Date Type Department Care Team (Late st Contact Info) Description 04/13/2025 11:10 AM MORTICIAN INVESTIGATOR Office Visit [facility] [address] [place] [address], [place] [address] Starla Vallejo MD [address] [place] [address] [address] [place] [id number] documented as of this encounter Visit Diagnoses Not on filedocumented in this encounter Care Teams Plasterer Tender Relationship Specialty Start Date End Date Kip [place] [address] PCP - General Internal Medicine 11/06/22 documented as of this encounter
--- OUTSIDE RECORDS SUMMARY | 2025-02-21 19:17 | XMS_ITS | Clinical Summary ---
Author Organization [facility] Healthcare Address [address] [place] [address] Care Team Providers Care Supervisor Felting Name Role Phone Kip Voss MD Primary Care Provider [phone] Allergies No known active allergies Medications acetaminophen 500 mg capsuleIndicatio ns:Fever,Pain Take 2 capsules (1,000 mg total) by mouth every 6 (six) hours as needed for pain 90 tablet 1 1 Active calcipotriene (DOVONOX) 0.005 % ointment Apply topically 2 (two) times a day 3 Active calcipotriene-be tamethasone (TACLONEX) ointment Apply to affected areas on extremities BID 3 Active Tremfya 100 mg/mL syringe subcutaneous syringe Inject 1 mL (100 mg total) under the skin every 8 (eight) weeks 2 Active meloxicam (MOBIC) 15 mg tablet Take 1 tablet (15 mg total) by mouth daily 5 Active Hospital, Clinic, or Other Facility Administered Medication Ordered Dose Route Frequency Start Date End Date Status levonorgestreL (LILETTA) 20.1 mcg/24 hrs (6 yrs) 52 mg IUD 1 eachIndications:Pre gnancy Contraception 1 each intrauterine Continuous (implanted device) 10/10/2020 7 Active Active Problems Problem Noted Date Diagnosed Date Annual physical exam 04/12/2021 Assessment & Plan (07/27/2024 3:13 PM ABATTOIR SUPERVISOR): In regard to health maintenance, WWE- not been to one will get appointment scheduled BERNABE Influenza vaccine- declined Eat a healthy diet: focus on lean meats and proteins, more fruits, vegetables and whole grains and low in sugars and fats. Limit red meat and avoid processed meat. Maintain a healthy weight; avoid being overweight. Aim for a normal body mass index (BMI) of 18.5-24.9. Help learning to eat healthier, we can set up appointment with director of rehabilitative services/pelt dropper. Have an active lifestyle, strive for 30 minutes of moderate exercise 5 times a week and strength or resistance training at least twice a week. Use broad-spectrum (UVA+UVB) sunscreen with SPF 30 or greater, is water resistant, limit time spent in the sun (10 am-4pm), wear hat, wear UV protective clothing, wear sunglasses. Never use a tanning bed. Skin that was irradiated may be more sensitive over your lifetime. Limit alcohol intake, 1 drink per day for a woman and 2 drinks per day for a man. Assessment & Plan (07/22/2023 2:41 PM ABATTOIR SUPERVISOR): Preventive exam. Reviewed recommended screening and vaccinations. Following with VALVE INSPECTOR. -Mammogram age 40 -Colonoscopy age 45 Assessment & Plan (04/12/2021 9:12 AM CDT): Preventive exam; reviewed recommended preventive screenings and vaccinations. Encourage annual flu vaccine. Wear sunscreen/protective clothing when outdoors. Need for immunization against influenza 04/12/20 21 Assessment & Plan (04/12/2021 9:13 AM CDT): Vaccine given in office today. Reviewed possible side effects/injection site reactions. Class 3 severe obesity due t o excess calories with serious comorbidity and body mass index (BMI) of 60.0 to 69.9 in adult 04/12/2021 Assessment & Plan (07/27/2024 3:13 PM ABATTOIR SUPERVISOR): Encouraged heart healthy diet and lifestyle. Advised 150 min/week of aerobic exercise. Assessment & Plan (07/22/2023 2:48 PM ABATTOIR SUPERVISOR): Patient interested in medications to assist weight loss. She is motivated for weight loss at this time, has lost 15 lb since the beginning of the year. Briefly reviewed medications used for weight loss including stimulants and GLP 1 medications. Patient does not have a history of pancreatitis or medullary thyroid cancer. No GI procedures or history of IBS. Recommended patient check with her insurance to see what if any medications are covered for weight loss. Patient has a history of gestational hypertension, blood pressures normalize following of her son. Does not require use of medication. No abnormal findings on previous EKG. Today we reviewed need to monitor caloric intake in order to determine areas of improvement, reviewed TDEE. Discussed the importance of following a high protein and lower carbohydrate diet. Calories around 2400, Protein 150 g/day, carb <130 g/day. Discussed the importance of daily activity such as walking in addition to f ormal exercise 1-2 days per week. Assessment & Plan (04/12/2021 9:13 AM CDT): Discussed healthy diet and importance of regular physical activity. Encounter for screening for lipid disorder 04/12 Assessment & Plan (07/22/2023 2:43 PM ABATTOIR SUPERVISOR): Will check fasting labs. Patient aware of need for weight loss and healthy diet. Assessment & Plan (04/12/2021 9:08 AM CDT): Reviewed previous lipid panel and elevated LDL. Will check fasting labs today. History of gestational hypertension 04/12/2021 Assessment & Plan (04/12/2021 9:08 AM CDT): BP well controlled today. Patient encouraged to check BP at home. Will call office for elevated readings. Reviewed need for weight loss and discussed diet and exercise recommendations to improve BP. Cardiac risk counseling 09/12/2020 Gestational hypertension, third trimester 2020 Psoriasis 08/07/2015 Overview (02/22/2020): Psoriasis clobetasol Assessment & Plan (07/27/2024 3:12 PM ABATTOIR SUPERVISOR): Stable and well controlled. Will continue to on Tremfya and seeing dermatology. Assessment & Plan (04/12/2021 8:50 AM CDT): Stable with topical clobetasol Diminished ovarian reserve Resolved Problems Problem Noted Date Diagnosed Date Resolved Date Diabetes mellitus 07/27/2024 07/27/2024 History of obesity 09/12/2020 care following vaginal delivery 08/28/2020 09/12/2020 Overview (08/30/2020): # ID: Afebrile. No signs/symptoms of infection. #COVID-19: Negative # Heme: EBL 250 mL. No signs/symtpoms of acute blood loss anemia. # Rh status: Mom A positive # CV/Pulm: Gestational hypertension - Blood pressures overall normotensive to mild range on nifed XL 30mg daily. blood pressures have ranged 123-138/70-86 over the last 24 hours with last blood pressure 135/70. Asymptomatic, denies KEBEDE/RUQ pain/vision changes. CBC/CMP WNL, UPC 0.08. Patient enrolled in remote blood pressure monitoring. # GI/: Tolerating PO. Voiding spontaneously. # Pain: Well controlled with pain medications. # Post DVT prophylaxis: The patient has the following MAJOR risk factors BMI >/= 40 and the following MINOR risk factors none. enoxaparin 40 mg BID ordered for VTE prophylaxis along with SCDs and early ambulation. # MOC: declines-IVF # MOF: and formula feeding # Mood:stable, bonding with baby # Disposition: Desires discharge home today. Stable for discharge. To schedule follow up appointment with: * [facility] - [facility] - [id number] [facility]. [place], [place] [address]Cyiu to schedule an appointment in 2 weeks and 6 weeks. Follow up to be scheduled with primary OB. Prior to discharge she was consented and enrolled in [facility] remote blood pressure monitoring. She verified enrollment with receipt of text message and reply of yes. She was provided with home blood pressure monitoring kit for continued home monitoring of her blood pressures and instructed on its use. Her AVS summary has been updated with the discharge instructions on the use of the remote blood pressure monitoring system. Symptoms of preeclampsia have been reviewed. Encounter for induction of labor 08/27/2020 10/11/2020 Overview (08/28/2020): 1. Induction of labor for gestational HTN: AROM @1355, clear fluid. Continue OT per protocol. S/p miso x2. 2. Gestational HTN: Asymptomatic. CBC/CMP wnl, UPC 0.08 3. FWB: Continuous monitoring. tracing category I 4. ID: HIV negative. GBS positive, will start penicillin. Membrane Status: AROM @1355, clear fluid. 5. Indications for UDS: none. Verbal consent obtained for UDS: Not indicated 6. MOF: Plans to breastfeed. 7. MOC: Undecided on contraception. 8. Pain management: Epidural placed. 9. Post DVT prophylaxis: The patient has the following MAJOR risk factors BMI >/= 40 and the following MINOR risk factors none. enoxaparin 40 mg BID will be ordered for VTE prophylaxis . 10. COVID Test Status: Preadmission testing negative Obesity affecting , antepartum 04/03/2020 09/12/2020 Encounter for supervision of resulting from assisted reproductive technology 04/03/2020 09/12/2020 Supervision of high-risk pre gnancy, unspecified trimester 04/03/2020 09/12/2020 Overview (04/03/2020): [] Co-management vs. [] Full [facility] Care; [] Red Team [] Blue Team Referring Provider: Susy Kendall [phone] [] or Medicare Insurance [x] Dating Criteria: Embryo transfer 12/29/19 LEILANI 09/15/20 [x] Labs: Rh [A+], Ab [negative], Rubella [immune], HIV [non-reactive], HepBSAg [non-reactive], RPR [non-reactive], GC/CT [negative/negative] [x] Genetic Screenin03/24/20 NIPT: Inconclusive for sex and sex chromosome aneuploidy; 10/10/17 Carrier Screen: Positive for CF [x] CBC/Hgb 13.4/41.7/plt 243 [x] Early 1hr GTT (if indicated) 03/14/20: GTT 129 [x] UCx: 02/22/20: 10,000-49,000 CFU/mL GBS [x] Pap: NILM; HPV negative [] LD ASA (if indicated) starting at 12 weeks: [] EPDS [ ]; PNBHS referral (if indicated) 2nd Tri Labs: [] Anatomy ultrasound: [] CBC/1hr gtt at 24-28wks: [x] Flu Shot (Feb-May): given 02/22/20 [] Tdap (27-36wks): [] Rhogam at 28 wks (if Rh neg): 3rd Tri Labs: [] CBC/HIV/RPR/T&S: [x] GBS:positive UCx 02/22/20 [] GC/CT (if indicated): [] COVID testing: Counselling [] MOD: [] Place of delivery: [] MOC: [] Method of feeding: [] Stockroom Supervisor: [] PP Depression Discussed: Group B Streptococcus urinar y tract infection affecting , antepartum 04/03/2020 09/13/19 Supervision of other normal , antepartum 01/27/2020 09/12/2020 Overview (08/24/2020): IVF - echo normal. Send delivery summary. MO - early one hour 129 , ASA, 83% at 28 weeks; 36 wk growth Patient CF positive, negative Previa resolved 06/23 gHTN dx @ 36.3, pre-e labs sent 08/21 nml -IOL sched 08/27/2020 @ 2200, pt aware, covid test ordered [x] Labs: Labs: Lab Results Component Value Date ABORH A Positive 02/22/2020 IDCOOMB Negative 02/22/2020 [id number] Nonreactive 02/22/2020 LABRPR Nonreactive 02/22/2020 RUBELIGG Reactive 02/22/2020 HEPBSAG Nonreactive 02/22/2020 [x] Genetic Screening:CFDNA, low probability tri 13, 18 and 21, sex inconclusive ( fraction 4.1%) Per SD, discussed options pt did not desire to repeat NIPT or do amniocentesis. Anatomy normal [x] Baby ASA: d/t [place] [x] 1hr GCT at 24-28wks: elevated 1hr, nml 3hr [x] Tdap (27-36wks):06/23/2020 AH [x] Flu Shot: 02/22/2020 AH [] Rhogam (if Rh neg): n/a, A+ [x] GBS at 36 wks:GBS pyuria [x] [x] control method: undecided, list provided [x] 39 weeks discussion of IOL vs. Expectant management: 37wks for gHTN [x] Mode of delivery: anticipate Boy, circ+, [facility] peds Teaching: [x] 1st visit [x] 28-30 week [x] 36 week Body mass index 40+ - severely obese 08/07/2015 04/12/2021 Overview (09/13/2016): BMI 40+ severely obese BMI 50.0-59.9, adult 020 Encounters Date Type Department Care Team Description 12/22/2024 Results Follow-Up [facility] Medicine Obstetrics and Gynecology [address] 1st Floor [address] [place] [address] Traci Little Rai, NP Pap and High Risk HPV and Genotyping (Cytology Component) 12/16/2024 2:11 PM CDT - 12/16/2024 11:59 PM CDT Hospital Encounter [facility] PATHOLOG[facility] [address]rd [place] [address] Encounter for well woman exam with routine gynecological exam Discharge Disposition: Discharge to home or self care 12/16/2024 2:00 PM CDT Office Visit [facility] Medicine Obstetrics and Gynecology [address] 7[address] [place] [address] Traci Little Rai, NP Encounter for well woman exam with routine gynecological exam (Primary Dx) from Last 3 Months Immunizations Immunization Administration Dates Next Due Influenza, Quadrivalent, Lesvia l Culture-based MDCK, Antibiotic Free, Intramuscular 02/22/2020 Influenza, Quadrivalent, Spl it, Preservative Free, Intramuscular 04/12/2021 Influenza, Unspecified 07/27/2024(Deferr ed: Patient Refused),07/27/2024(Deferred: Patient Refused),02/08/2024(Deferred: Patient Refused),02/08/2024(Deferred: Patient Refused),07/22/2023(Deferred: Patient Refused),03/09/2023(Deferred: Patient Refused),03/12/2022,03/15/2019(Deferre d: Patient Refused),03/09/2018 MMR 08/30/2020(Deferred: No longer n eeded) Tdap 06/23/2020 Surgical History Surgery Date Site/Laterality Comments WISDOM TOOTH EXTRACTION OVUM / OOCYTE RETRIEVAL Medical History Medical History Date Comments Cellulitis 12/2015 05-17,- Psoriasis 11/21-present Motion sickness Diminished ovarian reserve BMI 40.0-44.9, adult ([facility]) Supervision of high-risk , unspecified trimester 04/03/2020 Family History Medical History Relation Name Comments Kidney cancer Father Cancer, kidney ; Cause of : Cancer, kidney Colon cancer Maternal Grandfather Cancer, colon; Heart failure Maternal Grandmother No Known Problems Mother Breast cancer Other 1 Breast Cancer - (Added by TW Conv) Cancer Other 2 Reported Family History Of Cancer - (Added by TW Conv) Diabetes Other 3 Diabetes Mellit us - (Added by TW Conv) Heart disease Other 4 Heart Disease - (Added by TW Conv) Diabetes Paternal Grandfather Diabete s mellitus; Breast cancer Paternal Grandmother Cancer , breast; Multiple sclerosis Sister 1 Relation Name Status Comments Father (Age 45) Maternal Grandfather Maternal Grandmother Mother Alive Other 1 Other 2 Other 3 Other 4 Paternal Grandfather Paternal Grandmother Sister 1 Alive Sister 2 Alive Social History Tobacco Use Types Packs/Day Years Used Date Smoking Tobacco: Never Smokeless Tobacco: Never Tobacco Cessation:Counseling Given: Not Answered Alcohol Use Standard Drinks/Week Comments No 0 (1 standard drink = 0.6 oz pur e alcohol) [facility] Ininalities Answer Date Recorded In the past 12 months has e [employer], gas, oil, or water [employer] threatened to shut off services in your [...] How often do you attend chur or caodaism services? Never 07/27/2024 Do you belong to any clubs o r organizations such as congregational groups, unions, fraternal or athletic groups, or [...] staff should administer the PHQ-9) 0 07/27/2024 [facility] Occupational Stress Questionnaire Answer [...] things needed for daily living? No 07/27/2024 Scribner Depression Scale Answer Date Recorded Scribner Depression Scale Total 3 09/05/2020 The thought [...] any time in the past 12 m [facility], were you homeless or living in a care home (including now)? 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 Not on file Not on file Obstetrics History Para Term AB IAB SAB Ectopic Multiple Livin g Live Births 1 1 1 0 0 0 0 0 0 1 1 Date Outcome GA Total Labor Labor/2nd/3rd Weight Sex Type Anes PTL Kate A1 A5 Name Clin 2020 Term 37w 3d 1h 53m 1h 46m/0h 07m 3.3 kg (7 lb 4.4 oz) M Vag-S pont Epidur al N Katein g 8 9 CHLOE ROMERO, Carla Granger MD Complications:None Delivery Location:[facility] Main [facility] amp[facility] ([facility]) Comments 2020- DW- Franck, elevated bp's monitoring after delivery Last Filed Vital Signs Vital Sign Reading Time Taken Comments Blood Pressure 130/79 12/16/2024 2:05 PM CDT Pulse 104 07/27/2024 3:00 PM ABATTOIR SUPERVISOR Temperature 36.7 C (98 F) 07/22/2023 1:43 PM ABATTOIR SUPERVISOR Respiratory Rate 16 07/27/2024 3:00 PM ABATTOIR SUPERVISOR Oxygen Saturation 98% 07/27/2024 3:00 PM ABATTOIR SUPERVISOR Inhaled Oxygen Concentration - - Weight 156 kg (344 lb) 12/16/2024 2:05 PM CDT Height 168.9 cm (5' 6.5) 07/27/2024 3:00 PM ABATTOIR SUPERVISOR Body Mass Index 54.7 07/27/2024 3:00 PM ABATTOIR SUPERVISOR Plan of Treatment Health Maintenance Due Date Last Done Comments Varicella Vaccines (1 of 2 - 13+ 2-dose series) 1998 Hepatitis B Screening 09/27/2003 HPV Vaccines (1 - 3-dose SCDM series) 2012 Covid-19 Vaccine ( season) 2025 05/17/2021, 10/06/2020, 09/08/2020 Influenza Vaccine (#1) 2025 , 04/12/2021, 02/22/2020, Additional history exists Depression Screening 07/27/2025 07/27/2024, 07/27/2024, 07/22/2023, Additional history exists Cervical Cancer Screening 12/16/20252024, 12/16/2024, 02/22/2020 Regular Well Visit/Exam 18-64 12/16/2025 12/16/2024, 07/27/2024, 07/22/2023, Additional history exists DTaP/Tdap/Td Vaccine (2 - Td or Tdap) 06/23/2030 06/23/2020 Hepatitis C Screening Completed 05/21/2019, 019 Pneumococcal vaccine <65 Aged Out No longer eligible based on patient's age to complete this topic Procedures Procedure Name Priority Date/Time Associated Diagnosis Comments PAP AND HIGH RISK HPV, REFLEX TO GENOTYPING Routine 12/16/2024 2:11 PM CDT Encounter for well woman exam with routine gynecological exam HIGH RISK HPV DNA DETECTION WITH GENOTYPING Routine 12/16/2024 2:11 PM CDT Encounter for well woman exam with routine gynecological exam HEPATITIS C ANTIBODY Routine 05/21/2019 8:20 AM ABATTOIR SUPERVISOR Screening for STD (sexually transmitted disease) from Last 3 Months or Most Recently Relevant to Health Maintenance Results * High Risk HPV DNA Detection with Genotyping (Molecular component) (12/16/2024 2:11 PM CDT) Pathologist [facility] HPV HR 16 Not Detected Not Detected [facility] HPV HR 18 Not Detected Not Detected DONTE BAKER HPV HR Non 16/18 Not Detected Not Detected DONTE BAKER Comment: Interpretive Data Nucleic acid amplification for detection of high-risk Human Papilloma virus (HPV) is performed by the Alisia Stephanie 6800 HPV test. This assay specifically detects HPV-16 and HPV-18 genotypes. The following HPV genotypes are detected as high-risk HPV: HPV-31, 33, 35, ,39, 45, 51, 52, 56, 58, 59, 66, and 68. This assay has been approved by the [place] Food and Drug Administration for detection of HPV in cervical specimens collected by a physician using an endocervical brush/spatula or cervical broom and placed in the ThinPrep Pap Test PreservCyt collection containers. The performance characteristics of this test have been verified by the [facility] Molecular Infectious Disease laboratory. Correlate with separately reported cytology results, as applicable. Interpretive data last revised 22 Endocervical 12/16/2024 2:11 PM CDT 12/17/2024 9:15 AM CDT Narrative DONTE BAKER - 12/18/2024 9:08 AM CDT Clinical history and diagnosis->screening Testing type->Screening Last menstrual period (date if known)->unknown Contraceptive use->Hormonal Contraceptive use->IUD us Traci Little NP LAB BODY FLUIDS AND STOO LS ORDERABLES Final Result DONTE [facility] Department [place] [address] [facility] * Pap and High Risk HPV and Genotyping (Cytology Component) (12/16/2024 2:11 PM CDT) Thin prep (Pap test) 12/16/2024 2:11 PM CDT 12/16/2024 4:23 PM CDT Narrative PATHOLOGY [facility] - 12/22/2024 3:30 PM CDT EPIC results best viewed via link to PDF [facility] [place] [address] Note to Patients: This report may contain a detailed description of human tissue sent by a health care provider to the laboratory for pathologic evaluation. The content of this report is essential for diagnosis and may provide important critical findings. This information may be unfamiliar to patients to review without a medical professional present. It is advised that the patient review this report in the presence of a health care provider who can answer questions and explain the details. CYTOPATHOLOGY REPORT FINAL Patient Name: NGOC SWANN Gender: F : 1985 (Age: 39) Address: [address] [place] [id number] [facility] #: [id number] Service: Gynecology Location: Patient Type: [facility] SPECIMEN Taken: 12/16/2024 Received: 12/16/2024 Accessioned: 12/16/2024 Reported: 12/22/2024 Physician(s): Traci Little NP FINAL INTERPRETATION SOURCE OF SPECIMEN Liquid based Thin Prep pap with HPV: STATEMENT OF ADEQUACY - Satisfactory for evaluation - Endocervical cells/transformation zone sample absent - Obscuring inflammation present GENERAL CATEGORIZATION: - Negative for squamous intraepithelial lesion or malignancy Comments (Normal-Negative for High Risk HPV) HPV HR 16- Not detected HPV HR 18-Not detected HPV HR non 16/18- Not detected Interpretive Data Nucleic acid amplification for detection of high-risk Human Papilloma virus (HPV) is performed by the Alisia Stephanie 6800 HPV test. This assay specifically detects HPV- 16 and HPV-18 genotypes. The following HPV genotypes are detected as high-risk HPV: HPV-31, 33, 35, 39, 45, 51, 52, 56, 58, 59, 66, and 68. This assay has been approved by the [place] Food and Drug Administration for detection of HPV in cervical specimens collected by a physician using an endocervical brush/spatula or cervical broom and placed in the ThinPrep Pap Test PreservCyt collection containers. The performance characteristics of this test have been verified by the [facility] Molecular Infectious Disease laboratory. Correlate with reported cytology results, as applicable. Interpretive data last revised 22 [facility]/12/22/2024 15:30 KEVYN Coulter(ASCP) Report Electronically Reviewed and Signed Out By KEVYN Coulter(ASCP) 12/22/2024 15:30:15 Cervicovaginal Cytology (Pap Test) Disclaimer: The Pap test is a screening test used to detect cervical cancer and its precursors; it is not a diagnostic procedure. False negative and false positive results do occur. Pap test results should be interpreted in the context of pertinent clinical information and biopsy results as indicated. [facility] Clinical Laboratory Improvement Amendments (CLIA) mandate that cytologic and histologic results be correlated for laboratory quality control lab tech & improvement standards. FOR ALL HIGH-GRADE CASES we request submission of follow-up histological material and/or reports that have not been previously provided so that we may fulfill said required standards. Gross Description A. Liquid based Thin Prep pap with HPV: Cervical/vaginal - Screening ThinPrep Clinical Diagnosis and History Last Menstrual Period: unknown Contraceptive History: Hormonal IUD The patient is a 39 year old female with screening. Report Images and scanned documents, if included only viewable in PDF version The performance characteristics of some immunohistochemical stains, in-situ hybridization and fluorescence in-situ hybridization tests and immunophenotyping by flow cytometry cited in this report (if any) were determined by the Surgical Pathology Department at [facility] as part of an ongoing quality improvement specialist program and in compliance with federally mandated regulations drawn from the Clinical Laboratory Improvement Act of 1988 (CLIA '88). Some of these tests rely on the use of analyte specific reagents and are subject to specific labeling requirements by the [place] Food and Drug Administration. Such diagnostic tests may only be performed in a facility that is certified by the Department of Health and Human Services as a high complexity laboratory under CLIA '88. The FDA has determined that such clearance or approval is not necessary. This test is used for clinical purposes. It should not be regarded as investigational or for research. Nevertheless, federal rules concerning the medical use of analyte specific reagents require that the following disclaimer be attached to the report: This test was developed and its performance characteristics determined by the Surgical Pathology Department of [facility]. It has not been cleared or approved by the [place]. S. Food and Drug Administration. Traci Little NP LAB CYTOLOGY ORDERABLES Final Result PATHOLOGY [facility] 3rd Floor [place], [place] [phone] * Hepatitis C antibody (05/21/2019 8:20 AM ABATTOIR SUPERVISOR) Hep C Ab Nonreactive Nonreactive [facility] Comment: Interpretive Data Positive results should be confirmed by a molecular method. If positive, a second separately collected sample should be submitted for Hepatitis C Virus (HCV) RNA Detection and Quantitation by Real-Time Reverse Crop Duster-PCR (RT-PCR). Current interpretive data was last revised on 2016. Blood specimen (specimen) 05/21/2019 8:20 AM ABATTOIR SUPERVISOR 05/21/2019 3:00 PM ABATTOIR SUPERVISOR Olesya Saul MD LAB MICROBIOLOGY - GENERAL ORDERABLES Edited Result - Final [facility] One [facility] Department [place] [address] from Last 3 Months or Most Recently Relevant to Health Maintenance Insurance [facility] Advance Directives For more information, please contact: [phone] * Full Code (Latest Code Status on File) Date Activated Date Inactivated Comments 08/29/2020 12:47 AM 08/30/2020 6:40 PM * Full Code Date Activated Date Inactivated Comments 08/27/2020 10:30 PM 08/29/2020 12:47 AM Full CPR i n case of cardiopulmonary arrest * Full Code Date Activated Date Inactivated Comments 12/24/2019 8:32 AM 12/25/2019 5:00 AM Care Teams Supervisor Felting Relationship Specialty Start Date End Date [place] [address] PCP - General Family Medicine 04/14/21
== END 2025-02-21 18:54 | disposition home or self-care (01) ==
PROVIDERS: Emergency Provider Nurse Practitioner Family; PCP Family Medicine
DX: R59.0 Localized enlarged lymph nodes (principal)
CPT/HCPCS: 87081; 87880; 99203; G0463